=== PATIENT | male | born 1985 | race African-American/Black ===

== ENCOUNTER 2017-01-21 15:09 | Emergency (ER) | payer OTHER ==
[~2017-01-21] VITALS: Ht 172.7 cm; Wt 72.6 kg
--- NOTE | ~2017-01-21 | EKG ---
[address] [place] [address] ELECTROCARDIOGRAM REPORT Name: MONTILLAVALE Garrido [id number] Admission: 01/21/17 Attend Phys: Discharge: 01/21/17 Date of : 83 Report #: [id number] THIS REPORT FOR: //name// [facility] ED Test Date: 2017-01-21 Test Time: 15:16:57 Pat Name: VALE MONTILLA Department: Room: Gender: Conflicts Analyst: Turner DENNIS : 1985 Requested By: Janet Carrasquillo Order Number: [id number] MD: Porter Shaikh Measurements Intervals [place] Rate: 63 P: 66 MN: 154 QRS: 14 QRSD: 98 T: 50 QT: 386 QTc: 396 Interpretive Statements Sinus rhythm RSR' in V1 or V2, probably normal variant No previous ECG available for comparison Electronically Signed On 01-22-2017 7:56:02 CDT by Porter Shaikh [email or web address] <ELECTRONICALLY SIGNED> By: Porter Shaikh MD, [facility] 01/22/17 [id number] 1516 Porter Shaikh MD, FACC /EPI
[~2017-01-21 15:09] MED LIST: AMOXICILLIN 50500 M1 PO; CITRATE OF MAG296 ML PO; COLACE100 MG PO; DILAUDID2 M1 PO; IBUPROFEN 200200 M1 PO; IBUPROFEN 400400 M2 PO; NOHOMEMEDICATIONS; PENICILLIN V P500 MG PO; PHENERGAN 25 MG25 M1 PO; PROTONIX40 MG PO; TRAMADOL 50 MG50 MG PO; ZANTAC 150MG T150 MG PO; ZOFRAN ODT4 MG PO
[2017-01-21] MEDS ORDERED: MUCINEX TA600 MG/TA2 PO (15:26)
[2017-01-21 15:35] LABS: ABSOLUTE NEUTROPHILS 10.3 thou/uL (1.4-8.2); BASOPHILS 0.3 % (0.0-2.0); EOSINOPHILS 1.1 % (0.0-3.0); HEMATOCRIT 47.6 % (42.0-52.0); HEMOGLOBIN 15.9 gm/dL (14.0-18.0); MCH 29.8 pg (26.0-34.0); MCHC 33.3 g/dL (28.0-37.0); MCV 89.5 fL (80.0-100.0); MONOCYTES 6.1 % (1.0-8.0); PLATELET COUNT 142 thou/uL (150-400); POLYS 82.5 % (36.0-66.0); RBC 5.33 mil/uL (4.50-6.00); RDW 13.4 % (10.5-14.5); WBC 12.5 thou/uL (4.0-11.0)
[2017-01-21 15:36] LABS: MANUAL DIFF NO
[2017-01-21 15:43] LABS: ANION GAP 7 mmol/L (7-16); BUN 9 mg/dL (7-18); CALCIUM 8.7 mg/dL (8.5-10.1); CHLORIDE 105 mmol/L (98-107); CO2 26 mmol/L (21-32); CREATININE 0.8 mg/dL (0.7-1.3); GLUCOSE 104 mg/dL (74-106); POTASSIUM 4.4 mmol/L (3.5-5.1); SODIUM 138 mmol/L (136-145)
[2017-01-21 15:50] LABS: ALBUMIN 3.9 g/dL (3.4-5.0); ALKALINE PHOSPHATASE 85 U/L (46-116); SGOT 28 U/L (15-37); SGPT 45 U/L (30-65); TOTAL BILIRUBIN 0.3 mg/dL (<0.1-1.0); TROPONIN-I < 0.04 ng/mL (<0.04-0.07)
[2017-01-21 16:20] VITALS: BP 121/76
[2017-01-21] MEDS ORDERED: MOBIC15 MG PO (16:27)
[2017-01-21 16:38] LABS: AMP/METHAMP Negative (Negative); BARBITURATES Negative (Negative); BENZODIAZEPINES Negative (Negative); COCAINE Negative (Negative); METHADONE Negative (Negative); OPIATES Negative (Negative); PCP Negative (Negative); THC POSITIVE (Negative)
== END 2017-01-21 16:32 | disposition home or self-care (01) ==
LOC: ER 15:09
PROVIDERS: Physician Assistant
DX: M94.0 Chondrocostal junction syndrome [Tietze] (principal); F12.10 Cannabis abuse, uncomplicated; F17.210 Nicotine dependence, cigarettes, uncomplicated; Z71.6 Tobacco abuse counseling; Z88.6 Allergy status to analgesic agent